=== PATIENT | female | born 1990 | race Caucasian/White ===

== ENCOUNTER 2018-10-19 19:05 | Emergency (ER) | payer MEDICAID ==
[~2018-10-19] VITALS: Ht 152.4 cm; Wt 60.8 kg
[2018-10-19 19:11] VITALS: Ht 152.4 cm; Wt 60.8 kg
[2018-10-19 20:27] LABS: BASOPHIL % 0.4 % (0-2); PLATELET COUNT 314 x10^3mcL (130-400)
[2018-10-19 20:38] LABS: CALCIUM 9.2 mg/dL (8.5-10.1); CARBON DIOXIDE 25.6 mmol/L (21-32); CHLORIDE SERUM 102 mmol/L (98-107); CREATININE SERUM 0.7 mg/dL (0.6-1.0); GFR1 > 60 mL/min; GLUCOSE SERUM 97 mg/dL (74-106); POTASSIUM SERUM 3.3 mmol/L (3.5-5.1); SODIUM SERUM 140 mmol/L (136-145)
[2018-10-19 20:49] LABS: ALBUMIN 4.1 g/dL (3.4-5.0); ALKALINE PHOSPHATASE 64 U/L (46-116); ALT/SGPT 18 U/L (14-59); AST/SGOT 13 U/L (15-37); BILIRUBIN TOTAL 0.4 mg/dL (0.20-1.00); LIPASE 85 IU/L (73-393); TOTAL PROTEIN, SERUM 7.8 g/dL (6.4-8.2)
[2018-10-20 00:18] VITALS: BP 116/68
[2018-10-21] MEDS ORDERED: ZOF4 PO (14:21)
[2018-10-21] MEDS ORDERED: ACETAMINOPHEN A1 TAB PO (14:21)
[2018-10-21] MEDS ORDERED: BEN20 PO (14:21)
[2018-10-21] MEDS ORDERED: FLA500 PO (14:21)
== END 2018-10-20 00:18 | disposition home or self-care (01) ==
LOC: ED 19:05
PROVIDERS: Emergency Medicine
PROC: 3E023GC Introduction of Other Therapeutic Substance into Muscle, Percutaneous Approach (ICD-10-PCS; principal; 2018-10-20)
PROC: 3E033NZ Introduction of Analgesics, Hypnotics, Sedatives into Peripheral Vein, Percutaneous Approach (ICD-10-PCS; 2018-10-20)
PROC: 3E033GC Introduction of Other Therapeutic Substance into Peripheral Vein, Percutaneous Approach (ICD-10-PCS; 2018-10-20)
PROC: BW21ZZZ Computerized Tomography (CT Scan) of Abdomen and Pelvis (ICD-10-PCS; 2018-10-20)
DX: K52.9 Noninfective gastroenteritis and colitis, unspecified (principal); R10.9 Unspecified abdominal pain; R11.10 Vomiting, unspecified; R19.7 Diarrhea, unspecified
CPT/HCPCS: 87804; J0500; J1885; J2270; J2405; J7030

== ENCOUNTER 2018-10-21 11:45 | Inpatient (IN) | payer MEDICAID ==
[~2018-10-21] VITALS: Ht 152.4 cm; Wt 62.1 kg
[2018-10-21 11:49] VITALS: Ht 152.4 cm; Wt 62.1 kg
[2018-10-21 12:30] LABS: BASOPHIL % 0.3 % (0-2); PLATELET COUNT 297 x10^3mcL (130-400); RED CELL DISTRIBUTION WIDTH 12.2 % (11.5-14.5)
[2018-10-21 12:55] LABS: CALCIUM 8.8 mg/dL (8.5-10.1); CARBON DIOXIDE 27.5 mmol/L (21-32); CHLORIDE SERUM 106 mmol/L (98-107); CREATININE SERUM 0.8 mg/dL (0.6-1.0); GFR1 > 60 mL/min; GLUCOSE SERUM 100 mg/dL (74-106); POTASSIUM SERUM 3.8 mmol/L (3.5-5.1); SODIUM SERUM 143 mmol/L (136-145)
[2018-10-21 13:02] LABS: ALBUMIN 4.5 g/dL (3.4-5.0); ALKALINE PHOSPHATASE 70 U/L (46-116); ALT/SGPT 17 U/L (14-59); AST/SGOT 13 U/L (15-37); BILIRUBIN TOTAL 0.52 mg/dL (0.20-1.00); LIPASE 76 IU/L (73-393)
[2018-10-21 13:03] LABS: TOTAL PROTEIN, SERUM 8.3 g/dL (6.4-8.2)
[2018-10-21] MEDS ORDERED: ACETAMINOPHEN A1 TAB PO (14:21)
[2018-10-21] MEDS ORDERED: ZOF4 PO (14:21)
[2018-10-21] MEDS ORDERED: BEN20 PO (14:21)
[2018-10-21] MEDS ORDERED: FLA500 PO (14:21)
[2018-10-21 16:05] VITALS: BP 107/61
[2018-10-21 17:16] VITALS: BP 105/69
[2018-10-21 18:08] LABS: UA SPECIFIC GRAVITY 1.025 (1.005-1.035); microscopic required? YES; urine erythrocyte 1+ (NEGATIVE)
[2018-10-21 21:32] VITALS: BP 138/83
[2018-10-22 05:42] VITALS: BP 105/61
[2018-10-22 07:43] LABS: CALCIUM 8.3 mg/dL (8.5-10.1); CARBON DIOXIDE 25.2 mmol/L (21-32); CHLORIDE SERUM 106 mmol/L (98-107); CREATININE SERUM 0.7 mg/dL (0.6-1.0); GFR1 > 60 mL/min; GLUCOSE SERUM 64 mg/dL (74-106); POTASSIUM SERUM 4.1 mmol/L (3.5-5.1); SODIUM SERUM 140 mmol/L (136-145)
[2018-10-22 07:54] LABS: BASOPHIL % 0.9 % (0-2); PLATELET COUNT 271 x10^3mcL (130-400)
[2018-10-22 08:11] LABS: RED CELL DISTRIBUTION WIDTH 11.4 % (11.5-14.5)
[2018-10-22 09:18] VITALS: BP 104/62
[2018-10-22 17:49] VITALS: BP 115/62
[2018-10-22 21:14] VITALS: BP 111/66
[2018-10-23 06:07] VITALS: BP 101/53
[2018-10-23 06:40] LABS: CALCIUM 8.4 mg/dL (8.5-10.1); CARBON DIOXIDE 24.1 mmol/L (21-32); CHLORIDE SERUM 106 mmol/L (98-107); CREATININE SERUM 0.6 mg/dL (0.6-1.0); GFR1 > 60 mL/min; GLUCOSE SERUM 76 mg/dL (74-106); POTASSIUM SERUM 3.3 mmol/L (3.5-5.1); SODIUM SERUM 140 mmol/L (136-145)
[2018-10-23 06:50] LABS: BASOPHIL % 0.8 % (0-2); PLATELET COUNT 268 x10^3mcL (130-400); RED CELL DISTRIBUTION WIDTH 11.4 % (11.5-14.5)
[2018-10-23 09:02] VITALS: BP 107/54
[2018-10-23 17:53] VITALS: BP 119/79
[2018-10-23 20:46] VITALS: BP 106/62
[2018-10-24 06:00] VITALS: BP 100/54
[2018-10-24 06:16] LABS: BASOPHIL % 0.7 % (0-2); PLATELET COUNT 266 x10^3mcL (130-400); RED CELL DISTRIBUTION WIDTH 11.6 % (11.5-14.5)
[2018-10-24 06:21] LABS: CALCIUM 8.2 mg/dL (8.5-10.1); CARBON DIOXIDE 27.1 mmol/L (21-32); CHLORIDE SERUM 105 mmol/L (98-107); CREATININE SERUM 0.7 mg/dL (0.6-1.0); GFR1 > 60 mL/min; GLUCOSE SERUM 82 mg/dL (74-106); POTASSIUM SERUM 3.1 mmol/L (3.5-5.1); SODIUM SERUM 137 mmol/L (136-145)
[2018-10-24 09:47] VITALS: BP 111/77
[2018-10-24 12:56] VITALS: BP 101/63
[2018-10-24 14:09] VITALS: BP 101/63
== END 2018-10-24 16:49 | disposition home or self-care (01) | DRG 249 ==
LOC: ED 11:45 → MU 14:24
PROVIDERS: Emergency Medicine; Family Medicine
DX: A08.4 Viral intestinal infection, unspecified (principal); A05.9 Bacterial foodborne intoxication, unspecified; E87.6 Hypokalemia
CPT/HCPCS: 82962; 87046; 87046-59; 90658; J1170; J2270; J2405; J2765; J7030

== ENCOUNTER 2018-10-27 09:33 | Emergency (ER) | payer MEDICAID ==
[~2018-10-27] VITALS: Ht 152.4 cm; Wt 59.4 kg
[~2018-10-27 09:33] MED LIST: ACETAMINOPHEN A1 TAB PO; BEN20 PO; FLA500 PO; ZOF4 PO
[2018-10-27 09:52] VITALS: Ht 152.4 cm; Wt 59.4 kg
[2018-10-27 10:34] LABS: BASOPHIL % 0.9 % (0-2); PLATELET COUNT 291 x10^3mcL (130-400); RED CELL DISTRIBUTION WIDTH 12.4 % (11.5-14.5)
[2018-10-27 10:42] LABS: CALCIUM 9.1 mg/dL (8.5-10.1); CARBON DIOXIDE 26.8 mmol/L (21-32); CHLORIDE SERUM 103 mmol/L (98-107); CREATININE SERUM 0.7 mg/dL (0.6-1.0); GFR1 > 60 mL/min; GLUCOSE SERUM 90 mg/dL (74-106); POTASSIUM SERUM 3.9 mmol/L (3.5-5.1); SODIUM SERUM 138 mmol/L (136-145)
[2018-10-27 10:47] LABS: ALBUMIN 4.3 g/dL (3.4-5.0); ALKALINE PHOSPHATASE 60 U/L (46-116); ALT/SGPT 18 U/L (14-59); AST/SGOT 14 U/L (15-37); BILIRUBIN TOTAL 0.58 mg/dL (0.20-1.00); LIPASE 77 IU/L (73-393); TOTAL PROTEIN, SERUM 7.8 g/dL (6.4-8.2)
[2018-10-27 11:29] VITALS: BP 114/67
== END 2018-10-27 11:29 | disposition home or self-care (01) ==
LOC: ED 09:33
PROVIDERS: Emergency Medicine
DX: R10.13 Epigastric pain (principal); R11.2 Nausea with vomiting, unspecified
CPT/HCPCS: J2270; J2405

== ENCOUNTER 2019-06-28 18:16 | Emergency (ER) | payer MEDICAID ==
[~2019-06-28] VITALS: Ht 152.4 cm; Wt 59.9 kg
[2019-06-28 18:26] VITALS: Ht 152.4 cm; Wt 59.9 kg
[2019-06-28 19:08] LABS: BASOPHIL % 0.5 % (0-2); PLATELET COUNT 347 x10^3mcL (130-400); RED CELL DISTRIBUTION WIDTH 12.7 % (11.5-14.5)
[2019-06-28 19:21] LABS: CALCIUM 8.5 mg/dL (8.5-10.1); CHLORIDE SERUM 104 mmol/L (98-107); CREATININE SERUM 0.8 mg/dL (0.6-1.0); GFR1 > 60 mL/min; GLUCOSE SERUM 99 mg/dL (74-106); POTASSIUM SERUM 3.8 mmol/L (3.5-5.1); SODIUM SERUM 142 mmol/L (136-145)
[2019-06-28 19:25] LABS: ALBUMIN 4.1 g/dL (3.4-5.0); ALKALINE PHOSPHATASE 61 U/L (46-116); ALT/SGPT 14 U/L (14-59); AST/SGOT 10 U/L (15-37); BILIRUBIN TOTAL 0.37 mg/dL (0.20-1.00); LIPASE 109 IU/L (73-393)
[2019-06-28 21:03] VITALS: BP 118/62
== END 2019-06-28 21:03 | disposition home or self-care (01) ==
LOC: ED 18:16
PROVIDERS: Emergency Medicine
DX: R11.2 Nausea with vomiting, unspecified (principal); R10.12 Left upper quadrant pain
CPT/HCPCS: J2405

== ENCOUNTER 2019-09-16 08:52 | Inpatient (IN) | payer MEDICAID ==
[~2019-09-16] VITALS: Ht 152.4 cm; Wt 61.2 kg
[2019-09-16 08:56] VITALS: Ht 152.4 cm; Wt 61.2 kg
--- NOTE | 2019-09-16 09:09 | NUR ---
PT C/O BILATERAL TEMPORAL ACHING HEADACHE X2 DAYS WITH "SORE" LLQ PAIN, INTERMITTENT N/V, WELL CONSTIPATION X1 WK, PT REPORTS HX COLITIS, PT DENIES ANY RECENT TRAUMA AND/OR INJURY AND/OR ACTIVE BLEEDING, LOC, AND/OR URINARY S/S. PT AAOX4, NO NEURO DEFICITS NOTED, RESPS E/U, ABD SOFT FLAT NONDISTENDED HOWEVER TENDER UPON PALPATION, +NAUSEA -VOMITING AT THIS TIME, PT IN NAD GOWNED AND PLACED ON FULL CM, SINUS TACYCARDIA, AWAITING MSE
--- NOTE | 2019-09-16 10:17 | NUR ---
MD LEROY AT BEDSIDE PERFORMING MSE
--- NOTE | 2019-09-16 10:40 | NUR ---
PORTABLE US AT BEDSIDE
--- NOTE | 2019-09-16 10:46 | NUR ---
PT DENIES NAUSEA AT THIS TIME
--- NOTE | 2019-09-16 10:46 | NUR ---
PT REMAINS SINUS TACY ON CM, VSS, WILL CONTINUE TO MONITOR, CALL LIGHT WITHIN REACH
[2019-09-16 10:50] LABS: BASOPHIL % 0.1 % (0-2); PLATELET COUNT 279 x10^3mcL (130-400)
--- NOTE | 2019-09-16 11:32 | NUR ---
MD SAEZ MADE AWARE OF PT BP, PER MD NADJA ZARAGOZA, MED NOT GIVEN, PT PLACED IN [place]
[2019-09-16 11:39] LABS: ALBUMIN 3.7 g/dL (3.4-5.0); ALKALINE PHOSPHATASE 68 U/L (46-116); ALT/SGPT 19 U/L (14-59); CALCIUM 8.6 mg/dL (8.5-10.1); CARBON DIOXIDE 23.1 mmol/L (21-32); CHLORIDE SERUM 99 mmol/L (98-107); GLUCOSE SERUM 126 mg/dL (74-106); POTASSIUM SERUM 3.8 mmol/L (3.5-5.1); SODIUM SERUM 134 mmol/L (136-145); TOTAL PROTEIN, SERUM 7.9 g/dL (6.4-8.2)
--- NOTE | 2019-09-16 11:44 | NUR ---
MD SAEZ AT BEDSIDE DISCUSSING PLAN OF CARE
--- NOTE | 2019-09-16 11:57 | NUR ---
LAB AT BEDSIDE
--- NOTE | 2019-09-16 11:57 | NUR ---
PORTABLE CXR AT BEDSIDE
[2019-09-16 12:02] LABS: microscopic required? YES; urine erythrocyte 2+ (NEGATIVE)
[2019-09-16 12:06] LABS: AST/SGOT 8 U/L (15-37); BILIRUBIN TOTAL 0.75 mg/dL (0.20-1.00); CREATININE SERUM 0.7 mg/dL (0.6-1.0); GFR1 > 60 mL/min
--- NOTE | 2019-09-16 12:11 | NUR ---
PT REMAINS SINUS TACYCARDIA ON CM, RESPS E/U, SKIN PINK DRY WARM
--- NOTE | 2019-09-16 12:13 | NUR ---
PT DENIES DIZZINESS AT THIS TIME
--- NOTE | 2019-09-16 12:20 | NUR ---
PT TAKEN TO CT VIA VALDO
--- NOTE | 2019-09-16 12:44 | NUR ---
PT AAOX4, IN [place] POSITION, PT REMAINS SINUS TACY ON MONITOR, RESPS E/U, PT IN NAD WITH CALL LIGHT WITHIN REACH
--- NOTE | 2019-09-16 13:26 | NUR ---
PT RESTING IN NAD AT THIS TIME, VSS, WARM BLANKET PROVIDED, PT AFEBRILE, FLAGYL INFUSING PER EMAR AND MD ORDER, CALL LIGHT WITHIN REACH
--- NOTE | 2019-09-16 14:31 | NUR ---
PT DISCONNECTED TO USE RESTROOM, PT AAO4, RESP E/U, NO DISTRESS. AMBULATORY WITH STEADY GAIT.
--- NOTE | 2019-09-16 14:41 | NUR ---
RESIDENT AT BEDSIDE TO SPEAK WITH PT.
--- NOTE | 2019-09-16 15:17 | NUR ---
REPORT GIVEN TO SURU RN TO RESUME CARE OF PT UPON ADMISSION
[2019-09-16 15:41] VITALS: BP 96/49
[2019-09-16 15:48] LABS: AMPHETAMINE QUAL UR NONE DETECTED (See below)
--- NOTE | 2019-09-16 15:51 | NUR ---
RECEIVED PT FROM ED VIA LUANN. ORIENTED PT TO ROOM AND SURROUNDINGS. IV NOTED TO LAC PATENT AND INTACT. TELE 20 PLACED ON PT READING STA. INSTRUCTED PT ON THE USE OF CALL LIGHT FOR ASSISTANCE. ENDORSED PT TO PRIMARY NURSE NELSON
[2019-09-16 15:53] LABS: T3 TOTAL 0.88 ng/mL
[2019-09-16 16:08] LABS: MAGNESIUM 1.7 mg/dL (1.8-2.4); PHOSPHOROUS 1.6 mg/dL (2.5-4.9)
[2019-09-16 16:13] LABS: CHOLESTEROL/HDL RATIO 2.5
[2019-09-16 16:34] LABS: FREE T4 1.05 ng/dL (0.76-1.46); FREE THYROXINE INDEX 2.6 ug/dL (1.4-4.5); T4(THYROXINE) 7.5 ug/dL (4.7-13.3)
--- NOTE | 2019-09-16 18:33 | NUR ---
PT LYING IN BED A/A. BREATHING EQUAL/UNLABORED ON RA. PAIN TO LLQ OF ABD. RELAXATION ENCOURAGED. IVF RUNNING AT 100ML/HR. NO REDNESS/ SWELLING TO IV SITE. BED IN LOW POSITION, CALL LIGHT IN REACH, SAFETY PRECAUTIONS IN PLACE. WILL ENDORSE TO ON COMING SHIFT
--- NOTE | 2019-09-16 19:20 | NUR ---
PT RECEIVED A/O X4, ABLE TO MAKE NEEDS KNOWN. TELE #20, PT DENIES ANY CP/PRESSURE. PULSES PALPABLE, NO EDEMA PRESENT. BREATHING IS EVEN AND UNLABORED ON RA, NO RESP DISTRESS NOTED. ABD SOFT AND NONDISTENDED, DENIES N/V. VOIDS FREELY, PT REPORTS EPISODES OF URINARY FREQUENCY AND BURNING. MILD GENERALIZED WEAKNESS, AMBULATORY WITH STEADY GAIT. SKIN IS WARM AND DRY, INTACT. PT DENIES HAVING ANY PAIN AT THIS TIME. IVF INFUSING WELL, SITE WNL. NO ACUTE DISTRESS NOTED. BED IN LOWEST SETTING, SIDE RAILS UP X2, CALL LIGHT WITHIN REACH. WILL CONT TO MONITOR.
[2019-09-16 20:34] VITALS: BP 94/51
--- NOTE | 2019-09-16 23:29 | NUR ---
PT C/O CHILLS AND MODERATE LEFT-SIDED FLANK PAIN. TEMP-100.7. PRN TYLENOL GIVEN ORDERED. COOLING MEASURES MAINTAINED. NO ACUTE DISTRESS NOTED. WILL CONT TO MONITOR.
--- NOTE | 2019-09-17 00:39 | NUR ---
REASSESSED TEMP-99.2, COOLING MEASURES MAINTAINED. PT C/O 7/10 LEFT-SIDED FLANK PAIN, PRN NORCO GIVEN ORDERED. NO ACUTE DISTRESS NOTED. IVF INFUSING WELL, SITE WNL. CALL LIGHT WITHIN REACH. WILL CONT TO MONITOR.
[2019-09-17 05:39] VITALS: BP 131/65
--- NOTE | 2019-09-17 06:31 | NUR ---
PT SLEPT AT INTERVALS THROUGHOUT THE EVENING. BREATHING IS EVEN AND UNLABORED, NO RESP DISTRESS NOTED. TEMP-101.6, PRN TYLENOL GIVEN ORDERED AND COOLING MEASURES INITIATED. RECHECKED TEMP-100.2, COOLING MEASURES MAINTAINED. PT C/O 7/10 LEFT-SIDED FLANK PAIN, PRN NORCO GIVEN ORDERED. NO ACUTE CHANGES ENCOUNTERED DURING SHIFT. ALL NEEDS MET AND ANTICIPATED. PT COMLIANT WITH NURSING CARE. CALL LIGHT WITHIN REACH. WILL ENDORSE CARE TO AM NURSE.
[2019-09-17 06:37] LABS: BASOPHIL % 0.3 % (0-2); PLATELET COUNT 205 x10^3mcL (130-400); RED CELL DISTRIBUTION WIDTH 12.5 % (11.5-14.5)
[2019-09-17 06:49] LABS: CALCIUM 7.6 mg/dL (8.5-10.1); CARBON DIOXIDE 22.9 mmol/L (21-32); CHLORIDE SERUM 104 mmol/L (98-107); CREATININE SERUM 0.6 mg/dL (0.6-1.0); GFR1 > 60 mL/min; GLUCOSE SERUM 104 mg/dL (74-106); POTASSIUM SERUM 4.1 mmol/L (3.5-5.1); SODIUM SERUM 137 mmol/L (136-145)
--- NOTE | 2019-09-17 07:53 | NUR ---
RECEIVED PATIENT FROM ARLETTE GUZMAN. PATIENT IN BED WITH COOLING MEASURES APPLIED, PAIN CONTROL EFFECTIVE DOWN TO 4/[address] PRATT SAYED ALSO IN ROOM TO SPEAK WITH PATIENT, STATES HE WILL CONTINUE IV ANTIBIOTICS, MONITOR FOR ELEVATED TEMP, AND WILL ORDER PRN IBUPROFEN FOR PAIN AND PRN IMITREX FOR MIGRAINE LLANES. PATIENT UNDERSTANDS AND AGREES. WILL CONTINUE TO MONITOR. CALL LIGHT IN REACH.
[2019-09-17 08:17] VITALS: BP 99/55
--- NOTE | 2019-09-17 10:12 | NUR ---
DR DUARTE AND DR PRATT SAYED IN TO SPEAK WITH PATIENT. STATES THAT PATIENT WILL CONTINUE IV ANTIBIOTICS AT THIS TIME AND THAT SYMPTOMS LIKELY TO RESOLVE WITIN 48 HRS. PATIENT VERBALIZES UNDERSTANDING AND AGREES. CALL LIGHT IN REACH AT THIS TIME.
[2019-09-17 11:33] VITALS: BP 98/58
[2019-09-17 11:34] VITALS: BP 140/53
--- NOTE | 2019-09-17 15:04 | NUR ---
PATIENT HAS CONTINUED FLANK PAIN UNRELIEVED BY PRN NORCO AND PRN MOTRIN. PAGED DR PRATT SAYED TWICE FOR PAIN CONTROL, DR NOT PRESENT IN RESIDENT CLASSROOM. WARM TOWEL GIVEN TO PATIENT FOR LEFT FLANK PAIN UNTIL RETURN CALL FROM DR PRATT SAYED. FAMILY AT BEDSIDE AT THIS TIME.
[2019-09-17 16:39] VITALS: BP 95/62
--- NOTE | 2019-09-17 18:18 | NUR ---
PATIENT SEATED IN BED, STATES PAIN HAS IMPROVED FROM PRN TORADOL IV. PATIENT STATES HOWEVER THAT SHE IS STILL FEELING NAUSEA BUT NO EPISODES AT THIS TIME. WILL ENDORSE TO ONCOMING NURSE. CALL LIGHT IN REACH.
--- NOTE | 2019-09-17 19:05 | NUR ---
PT RECEIVED A/O X4, ABLE TO MAKE NEEDS KNOWN. TELE #20, PT DENIES ANY CP/PRESSURE. PULSES PALPABLE, NO EDEMA PRESENT. BREATHING IS EVEN AND UNLABORED ON RA, NO RESP DISTRESS NOTED. ABD SOFT AND NONDISTENDED, PT MAY HAVE EPISODES OF N/V. VOIDS FREELY, BRP. MILD GENERALIZED WEAKNESS, AMBULATORY WITH STEADY GAIT. SKIN IS WARM AND DRY, INTACT. PT DENIES HAVING ANY PAIN AT THIS TIME. IVF INFUSING WELL, SITE WNL. NO ACUTE DISTRESS NOTED. BED IN LOWEST SETTING, SIDE RAILS UP X2, CALL LIGHT WITHIN REACH. WILL CONT TO MONITOR.
[2019-09-17 20:05] VITALS: BP 98/59
--- NOTE | 2019-09-17 21:38 | NUR ---
PT C/O NAUSEA, PRN ZOFRAN GIVEN ORDERED. EMESIS BAG PROVIDED. NO ACUTE DISTRESS NOTED. WILL CONT TO MONITOR.
--- NOTE | 2019-09-17 22:43 | NUR ---
PT C/O 05/10 ABD PAIN. PT REFUSING PRN IBUPROFEN AND PRN TORADOL NOT DUE AT THIS TIME. DR SIDHU MADE AWARE. ONE TIME DOSE OF MORPHINE IVP GIVEN ORDERD. NO ACUTE DISTRESS NOTED. WILL CONT TO MONITOR.
--- NOTE | 2019-09-18 02:51 | NUR ---
PT C/O 05/10 ABD PAIN, PRN TORADOL IVP GIVEN ORDERED. NO ACUTE DISTRESS NOTED. CALL LIGHT WITHIN REACH. WILL CONT TO MONITOR.
[2019-09-18 05:36] VITALS: BP 90/47
[2019-09-18 06:17] LABS: CALCIUM 7.4 mg/dL (8.5-10.1); CARBON DIOXIDE 22.5 mmol/L (21-32); CHLORIDE SERUM 106 mmol/L (98-107); CREATININE SERUM 0.6 mg/dL (0.6-1.0); GFR1 > 60 mL/min; GLUCOSE SERUM 78 mg/dL (74-106); POTASSIUM SERUM 3.5 mmol/L (3.5-5.1)
[2019-09-18 06:27] LABS: SODIUM SERUM 139 mmol/L (136-145)
[2019-09-18 06:52] LABS: BASOPHIL % 0.2 % (0-2); PLATELET COUNT 192 x10^3mcL (130-400); RED CELL DISTRIBUTION WIDTH 12.7 % (11.5-14.5)
--- NOTE | 2019-09-18 07:00 | NUR ---
RECEIVED REPORT FROM MEGAN CHONG AT BEDSIDE, PT SLEEPING IN BED IN NO ACUTE DISTRESS
--- NOTE | 2019-09-18 07:25 | NUR ---
PT SLEPT AT INTERVALS THROUGHOUT THE EVENING. BREATHING IS EVEN AND UNLABORED, NO RESP DISTRESSS NOTED. PT DENIES HAVING ANY PAIN AT THIS TIME. NO ACUTE CHANGES ENCOUNTERED DURING SHIFT. ALL NEEDS MET AND ANTICIPATED. PT COMPLIANT WITH NURSING CARE. IVF INFUSING WELL, SITE WNL. CALL LIGHT WITHIN REACH. CONT OF CARE ENDORSED TO AM NURSE. ALL QUESTIONS AND CONCERNS ADDRESSED.
--- NOTE | 2019-09-18 07:50 | NUR ---
PT RESTING IN BED, IN NO ACUTE DISTRES, ABLE TO MAKE NEEDS KNOWN, AXOXO4, VERBAL, CALM AND COPPERATIVE, DENIED LLANES/DIZZINESS, PERRLA, NO REDNESS/ DRAINAGE, NO FACIAL DROOP/SLURRED SPEECH, RESP EVEN, NO SOB/COUGH, RA, LUNGS CTA, CHEST RISE SYMMETRICALLY, TELE #20, NSR, HR-95, DENIED CP/ PALPITATION, ABD FLAT AND NON-TENDER TO TOUCH, BS ACTIVE X 4, DENIED ABD PAIN/ DISCOMFORT, EQUAL HAND MANAGER FLEET, PALP PULSES, CAP REFILL < 2S, SKIN C/D/W, SEE SKIN ASSESSMENT, CONTINENT, DENIED BURING/PAIN URINATION, AMBULATORY, IV PATENT AND INFUSIGN WELL, DRESSING CDI, REGULAR DIET, ALL NEEDS ADDRESSED AT THIS TIME, SAFETY PROTOCOL FOLLOWED, CONTINUE TO MONITOR
--- NOTE | 2019-09-18 08:48 | NUR ---
PT REPOTED MIGRAIN LLANES, 04/10, (L) SIDED, MEDICATED PER PRN ORDER VIA EMAR, TOLERATED WELL, NO ASE NTOED AT THIS TIME, EDUCATED OT R/T MED, ASE AND MONITOR, VERBALLY UNDERSTANDING, CONTINUE TO MONITOR
[2019-09-18 08:53] VITALS: BP 96/61
--- NOTE | 2019-09-18 09:05 | NUR ---
AM MEDS GIVEN PER M ORDER VIA EMAR, TOLERATED WELL, NO ASE NOTED AT THIS TIME, EDUCATED PT R/T MED, ASE AND MONITOR, VERBALLY UNDERSTANDING, ALL NEEDS ADDRESSED AT THIS TIME, CONTINEU TO MONITOR
--- NOTE | 2019-09-18 09:48 | NUR ---
PT REPORTED NAUSEATED, MEDICATED PER PRN ORDER VIA EMAR, TOELRATED WELL, ICE CHIP PROVIDED FOR COMFORT, PT RESTING IN BED, IN NO ACUTE DISTRESS, CONTINIUE TO MONITOR
[2019-09-18 11:32] VITALS: BP 101/60
--- NOTE | 2019-09-18 13:19 | NUR ---
PT REPORTED BACK PAIN, 5/10, MEDICATED PER PRN ORDER VIA EMAR, TOLERATED WELL, NO ASE NOTED AT THIS TIME, EDUCATED PT R/T MED, ASE AND MONITOR, VERBALLY UNDERSTANDING, NO FUTHER CONCERN NEEDED WHEN ASKED, PITCHER WATER REFILLED, ALL NEEDS ADDRESSED AT THIS TIME, CONTINUE TO MONITOR
[2019-09-18 16:38] VITALS: BP 108/69
--- NOTE | 2019-09-18 17:32 | NUR ---
PT RESTING IN BED, IN NO ACUTE DISTRESS, REPORT NO PAIN/DISCOMFORT AT THIS TIME, IV PATENT AND FLUSHING WELL, DRESSING CDI, ALL NEEDS ADDESSED AT THIS TIME, SAFETY PROTOCOL FOLLOWED, COMFORT MEASRUE PROVIDED, WILL ENDORSE TO ONCOMING RN
--- NOTE | 2019-09-18 20:04 | NUR ---
PT RECIEVED AAO REG RESP NOS OB V/S STABLE,IV INFUSING WEL WITH TE SITE PATENT AND INTACT,ABDO IS SOFT WITH ACTIVE BOWEL SOUNDS,NO PAIN REPORTED AT THIS TIME,CALL LIGHT EASY REACHED AND WILL CONTINUE TO MONITOR.
[2019-09-18 21:32] VITALS: BP 104/60
--- NOTE | 2019-09-18 21:56 | NUR ---
PT WITH C/O OF MIGARNE H/A ASCHING IN NATURE AT THE SCALE OF 7/10,PT WAS MEDICATED WITH PAIN MEDS ORDER AND WILL CONTINUE TO MONITOR.
[2019-09-19 06:02] VITALS: BP 111/66
--- NOTE | 2019-09-19 06:25 | NUR ---
PT HAD A RESTING NIGHT NO CHANGE AT THIS TIME,WILL CONTINUE TO MONITOR.
[2019-09-19 07:19] LABS: CALCIUM 7.8 mg/dL (8.5-10.1); CARBON DIOXIDE 26.5 mmol/L (21-32); CHLORIDE SERUM 109 mmol/L (98-107); CREATININE SERUM 0.5 mg/dL (0.6-1.0); GFR1 > 60 mL/min; GLUCOSE SERUM 78 mg/dL (74-106); POTASSIUM SERUM 3.9 mmol/L (3.5-5.1); SODIUM SERUM 144 mmol/L (136-145)
[2019-09-19 07:27] LABS: BASOPHIL % 0.2 % (0-2); PLATELET COUNT 206 x10^3mcL (130-400); RED CELL DISTRIBUTION WIDTH 12.5 % (11.5-14.5)
--- NOTE | 2019-09-19 07:35 | NUR ---
RECEIVED PT. IN BED A/A/O X4. NO SOB, NO N/V NOTED. PT. DENIES ANY PAIN AT THIS TIME. NS RUNNING AT 100 CC/HR VIA IV SITE AT L AC. BED IN LOW POS., CALL LIGHT WITHIN REACH. SIDE RAILS UP X3.
[2019-09-19] MEDS ORDERED: LEVAQUIN750 MG PO (08:40)
[2019-09-19 09:27] VITALS: BP 103/55
--- NOTE | 2019-09-19 11:45 | NUR ---
D/C HOME INSTRUCTIONS GIVEN TO PT. WHO VERBALIZED UNDERSTANDING OF INSTRUCTIONS. IV H/L TO L AC REMOVED.
--- NOTE | 2019-09-19 12:25 | NUR ---
PT. IS BEING DISCHARGED IN STABLE CONDITION. ALL BELONGINGS SENT HOME WITH PT. UPON DISCHARGE.
== END 2019-09-19 12:53 | disposition home or self-care (01) | DRG 720 ==
LOC: ED 08:52 → DU 13:53 → MU 09-18 13:17
PROVIDERS: Emergency Medicine; ADMIT Internal Medicine
DX: A41.9 Sepsis, unspecified organism (principal); E83.39 Other disorders of phosphorus metabolism; E87.1 Hypo-osmolality and hyponatremia; N12 Tubulo-interstitial nephritis, not specified as acute or chronic; E83.42 Hypomagnesemia; G43.909 Migraine, unspecified, not intractable, without status migrainosus; F12.90 Cannabis use, unspecified, uncomplicated; Z68.27 Body mass index [BMI] 27.0-27.9, adult
CPT/HCPCS: 83880; 84439; 90658; G0378; J0696; J1885; J1956; J2270; J2405; J3475; J3490; J7030; J7060; Q0092; Q9967